=== PATIENT | female | born 1975 | race Caucasian/White ===

== ENCOUNTER 2017-03-05 13:09 | Emergency (ER) | payer BC ==
--- NOTE | 2017-03-05 13:48 | UC ---
Headache HPI - HPI Summary HPI Summary: 41 YEAR OLD FEMALE PRESENTS WITH COMPLAINS OF SEVERE NECK PAIN, FEVER AND CHILLS. I WILL SEND HER TO THE ER TO RULE OUT MENINGITIS. - History Of Current Complaint Stated Complaint: HEADACHE,VOMITING Time Seen by Provider: 03/05/17 13:41 Hx Last Menstrual Period: 12/22/16 Onset/Duration: Sudden Onset Onset Of Symptoms: Sudden Initially Headache Was: Moderate Pain Scale Used: 0-10 Numeric - 7 Character: Sharp Location of Headache: Occipital Allevating Factors: Nothing Associated Signs And Symptoms: Positive: Fever, Neck Pain, Neck Stiffness - Allergies/Home Medications Allergies/Adverse Reactions: Allergies Allergy/AdvReac Type Severity Reaction Status Date / Time Adhesive Tape Allergy Peeling, Verified 03/05/17 13:47 Red Skin ENVIRONMENTAL Allergy SNEEZING, Uncoded 03/05/17 13:47 STUFFY PMH/Surg Hx/FS Hx/Imm Hx - Surgical History Surgical History: Yes Surgery Procedure, Year, and Place: HX OF BREAST REDUCTION 2007 [facility]. BREAST AND STOMACH RECONSTRUCTION SX 2007. ganglion cyst removed oct 2013 - Family History Known Family History: Positive: Hypertension Negative: Cardiac Disease, Diabetes Family History: family history neagtive for asthma, COPD - Social History Alcohol Use: None Substance Use Type: None Smoking Status (MU): Never Smoked Tobacco - Immunization History Most Recent Influenza Vaccination: July 2015 Review of Systems Constitutional: Fever, Chills, Fatigue Skin: Negative Eyes: Negative ENT: Sore Throat, Sinus Congestion, Sinus Pain/Tenderness Respiratory: Cough Cardiovascular: Negative Gastrointestinal: Negative Genitourinary: Negative Motor: Negative Neurovascular: Negative Musculoskeletal: Negative Neurological: Negative, Headache, Other - NECK PAIN Psychological: Negative All Other Systems Reviewed And Are Negative: Yes Physical Exam Triage Information Reviewed: Yes Eye Exam: Normal ENT Exam: Normal Dental Exam: Normal Neck exam: Normal Neck: Positive: Nuchal Rigidity, Tenderness @ Respiratory Exam: Normal Cardiovascular Exam: Normal Abdominal Exam: Normal Musculoskeletal Exam: Normal Neurological Exam: Normal Psychological Exam: Normal Skin Exam: Normal Headache Course/Dx - Differential Dx/Diagnosis Provider Diagnoses: NECK PAIN. FEVER. CHILLS. BODYACHES Discharge - Discharge Plan Condition: Guarded Disposition: AGAINST MEDICAL ADVICE Patient Education Materials: Acute Headache (ED), Acute Nausea and Vomiting (ED ) Referrals: Mona Rosales MD [Primary Care Provider] -
[2017-03-05 13:54] VITALS: BP 115/73
== END 2017-03-05 14:04 | disposition left against medical advice (07) ==
LOC: UCCORT 13:09
DX: M54.2 Cervicalgia (principal); R50.9 Fever, unspecified; Z91.048 Other nonmedicinal substance allergy status
CPT/HCPCS: 99212; G0463

== ENCOUNTER 2017-05-21 12:21 | Emergency (ER) | payer BC ==
[2017-05-21 12:40] VITALS: BP 145/83
[2017-05-21] MEDS ORDERED: Albuterol 2.5 MG/3 ML NEB.SOL* (0.083%) INH ONE (13:00)
--- NOTE | 2017-05-21 13:00 | UC ---
Respiratory Complaint HPI - HPI Summary HPI Summary: Pt presents with c/o of cough, SOB, and wheezing X week. Pt has history of pneumonia - History of Current Complaint Chief Complaint: UCRespiratory Stated Complaint: CHEST CONGSTION, COUGH Time Seen by Provider: 05/21/17 12:42 Hx Obtained From: Patient Hx Last Menstrual Period: 05/12/17, on control ?: No Onset/Duration: Gradual Onset, Lasting Weeks - 1, Still Present, Worse Since - onset Timing: Intermittent Episodes Severity Initially: Mild Severity Currently: Mild Character: Cough: Nonproductive Aggravating Factors: Allergens, Exertion, Deep Breaths, Recumbent Position Alleviating Factors: Nothing Associated Signs And Symptoms: Positive: Wheezing, URI, Nasal Congestion Related History: Seasonal Allergies - Risk Factors Pulmonary Embolism Risk Factors: Oral Contraceptives Cardiac Risk Factors: Negative Pseudomonas Risk Factors: Negative Tuberculosis Risk Factors: Negative - Allergies/Home Medications Allergies/Adverse Reactions: Allergies Allergy/AdvReac Type Severity Reaction Status Date / Time Adhesive Tape Allergy Peeling, Verified 05/21/17 12:40 Red Skin ENVIRONMENTAL Allergy SNEEZING, Uncoded 05/21/17 12:40 STUFFY Home Medications: Home Medications Dextromethorphan-Phenylephrine [Robitussin Cold+Flu Dayti 10-5-325 mg] 1 cap PO DAILY PRN 05/21/17 [History Confirmed 05/21/17] PMH/Surg Hx/FS Hx/Imm Hx Previously Healthy: Yes Respiratory History: Asthma - ?, Pneumonia - Surgical History Surgical History: Yes Surgery Procedure, Year, and Place: HX OF BREAST REDUCTION 2008 [facility]. BREAST AND STOMACH RECONSTRUCTION SX 2007. ganglion cyst removed oct 2013 - Family History Known Family History: Positive: Hypertension Negative: Cardiac Disease, Diabetes Family History: family history neagtive for asthma, COPD - Social History Occupation: Employed Full-time Lives: With Family Alcohol Use: None Substance Use Type: None Smoking Status (MU): Never Smoked Tobacco Have You Smoked in the Last Year: No - Immunization History Most Recent Influenza Vaccination: July 2015 Review of Systems Constitutional: Negative Skin: Negative Eyes: Negative ENT: Sore Throat - in the morning, Other - nasal congestion Respiratory: Shortness Of Breath, Cough Cardiovascular: Negative Gastrointestinal: Negative Genitourinary: Negative Motor: Negative Neurovascular: Negative Musculoskeletal: Negative Neurological: Headache Psychological: Negative Is Patient Immunocompromised?: No All Other Systems Reviewed And Are Negative: Yes Physical Exam Triage Information Reviewed: Yes Appearance: Well-Appearing Vital Signs: Initial Vital Signs Temp 98.3 F 05/21/17 12:34 Pulse 75 05/21/17 12:34 Resp 16 05/21/17 12:34 BP 145/83 05/21/17 12:34 Pulse Ox 98 05/21/17 12:34 Vital Signs Reviewed: Yes Eye Exam: Normal ENT Exam: Other ENT: Positive: Nasal congestion, TM bulging - bialteral Dental Exam: Normal Neck exam: Normal Respiratory Exam: Other Respiratory: Positive: Decreased breath sounds - right lower base, Wheezing Cardiovascular Exam: Normal Musculoskeletal Exam: Normal Neurological Exam: Normal Psychological Exam: Normal Skin Exam: Normal UC Diagnostic Evaluation - Laboratory O2 Sat by Pulse Oximetry: 98 Respiratory Course/Dx - Course Course Of Treatment: xray: 2 views of the chest including dual energy PA views demonstrate no mediastinal shift. Heart is of normal size and configuration. Lung farias demonstrate no pleural fluid,. pneumonia or pneumothorax. IMPRESSION: No active cardiopulmonary disease is identified. - Differential Dx/Diagnosis Differential Diagnosis/HQI/PQRI: Asthma, Bronchitis Provider Diagnoses: reactive airway. post viral cough Discharge - Discharge Plan Condition: Stable Disposition: HOME Prescriptions: Benzonatate CAP* [Tessalon 100 MG CAP*] 100 mg PO TID PRN #30 cap PRN Reason: Cough Cetirizine* [ZyrTEC 10 MG TAB*] 10 mg PO DAILY #20 tab Fluticasone NASAL SPRAY 50MCG* [Flonase NASAL SPRAY 50MCG*] 2 spray BOTH NARES DAILY #1 btl predniSONE TAB* [Deltasone TAB*] 20 mg PO DAILY #4 tab Patient Education Materials: Reactive Airways Disease (ED) Referrals: Mona Rosales MD [Primary Care Provider] - If Needed Additional Instructions: Please follow up with your PCP or return to clinic as needed.
[2017-05-21] MEDS ORDERED: Ipratropium 0.5MG/2.5ML NEB* 0.5 MG/2.5 ML NEB.SOLN INH ONE (13:01)
--- NOTE | 2017-05-21 13:24 | RAD ---
Indication: Cough, shortness of breath. 2 views of the chest including dual energy PA views demonstrate no mediastinal shift. Heart is of normal size and configuration. Lung farias demonstrate no pleural fluid, pneumonia or pneumothorax. IMPRESSION: No active cardiopulmonary disease is identified.
== END 2017-05-21 13:49 | disposition home or self-care (01) ==
LOC: UCCORT 12:21
DX: J45.909 Unspecified asthma, uncomplicated (principal); R05 Cough; Z79.3 Long term (current) use of hormonal contraceptives
CPT/HCPCS: 71020; 99212; G0463; J7644

== ENCOUNTER 2018-03-25 11:55 | Emergency (ER) | payer BC ==
[2018-03-25 12:12] VITALS: BP 132/80
--- NOTE | 2018-03-25 12:34 | UC ---
Skin Complaint HPI - HPI Summary HPI Summary: 2 days of spreading rash on left ankle---unsure if she got bitten by an insect/ bee or spider - History of Current Complaint Chief Complaint: UCRash Time Seen by Provider: 03/25/18 12:15 Stated Complaint: SKIN ISSUE Hx Obtained From: Patient Hx Last Menstrual Period: 03/13/18 ?: No Onset/Duration: Sudden Onset, Lasting Days - 2 Skin Exposure Onset/Duration: Days Ago - 2 Timing: Constant Pain Intensity: 7 Pain Scale Used: 0-10 Numeric Location: Discrete - inner left ankle Character: Swelling, Pain, Redness Aggravating Factor(s): Nothing Alleviating Factor(s): Nothing Associated Signs & Symptoms: Positive: Negative Related History: Insect Bite/Sting - Allergy/Home Medications Allergies/Adverse Reactions: Allergies Allergy/AdvReac Type Severity Reaction Status Date / Time Adhesive Tape Allergy Peeling, Verified 05/21/17 12:40 Red Skin ENVIRONMENTAL Allergy SNEEZING, Uncoded 05/21/17 12:40 STUFFY Review of Systems Constitutional: Negative Skin: Other - open area frm ?bite or sting with surrounding tenderness and erythema (no streaking) Eyes: Negative ENT: Negative Respiratory: Negative Cardiovascular: Negative Gastrointestinal: Negative Genitourinary: Negative Motor: Negative Neurovascular: Negative Musculoskeletal: Negative Neurological: Negative Psychological: Negative Is Patient Immunocompromised?: No All Other Systems Reviewed And Are Negative: Yes PMH/Surg Hx/FS Hx/Imm Hx Previously Healthy: No Cardiovascular History: Hypertension Respiratory History: Asthma - mild intermitt. asthma Psychological History: Depression - Surgical History Surgical History: Yes Surgery Procedure, Year, and Place: HX OF BREAST REDUCTION 2007 [facility]. BREAST AND STOMACH RECONSTRUCTION SX 2007. ganglion cyst removed oct 2013 - Family History Known Family History: Positive: Hypertension Negative: Cardiac Disease, Diabetes Family History: family history neagtive for asthma, COPD - Social History Occupation: Employed Full-time Lives: With Family Alcohol Use: None Substance Use Type: None Smoking Status (MU): Never Smoked Tobacco Have You Smoked in the Last Year: No - Immunization History Most Recent Influenza Vaccination: July 2015 Physical Exam Triage Information Reviewed: Yes Appearance: Well-Appearing, No Pain Distress, Obese Vital Signs: Initial Vital Signs Temp 98 F 03/25/18 12:10 Pulse 83 03/25/18 12:10 Resp 17 03/25/18 12:10 BP 132/80 03/25/18 12:10 Pulse Ox 100 03/25/18 12:10 Vital Signs Reviewed: Yes Eye Exam: Normal Eyes: Positive: Conjunctiva Clear ENT Exam: Normal ENT: Positive: Normal ENT inspection, Hearing grossly normal, Pharynx normal. Negative: Trismus, Muffled voice, Hoarse voice Dental Exam: Normal Neck exam: Normal Neck: Positive: Supple, Nontender, No Lymphadenopathy Respiratory Exam: Normal Respiratory: Positive: Chest non-tender, No respiratory distress, No accessory muscle use Cardiovascular Exam: Normal Cardiovascular: Positive: RRR, Pulses Normal, Brisk Capillary Refill Musculoskeletal Exam: Normal Musculoskeletal: Positive: Strength Intact, ROM Intact, Edema @ - left medial ankle Neurological Exam: Normal Neurological: Positive: Alert Psychological Exam: Normal Skin Exam: Other Skin: Positive: Other - open area from insect bite or sting and 2 days of surrounding worsening pain and redness Course/Dx - Course Course Of Treatment: elevation, warmth, bactrim, follow with pcp - Diagnoses Provider Diagnoses: cellulitis left medial ankle, insect bite Discharge - Sign-Out/Discharge Documenting (check all that apply): Patient Departure - Discharge Plan Condition: Stable Disposition: HOME Prescriptions: Sulfamethox/Trimethoprim DS* [Bactrim DS 800/160 TAB*] 1 tab PO BID #14 tab Patient Education Materials: Cellulitis (ED), Insect Bite or Sting (ED), Warm Compress or Soak (ED) Referrals: Mona Rosales MD [Primary Care Provider] - If Needed Additional Instructions: Rest and elevate leg with warm compress this weekend - Billing Disposition and Condition Condition: STABLE Disposition: Home
== END 2018-03-25 12:45 | disposition home or self-care (01) ==
LOC: UCEAST 11:55
DX: S90.562A Insect bite (nonvenomous), left ankle, initial encounter (principal); L03.116 Cellulitis of left lower limb; I10 Essential (primary) hypertension; J45.909 Unspecified asthma, uncomplicated; W57.XXXA Bitten or stung by nonvenomous insect and other nonvenomous arthropods, initial encounter; Z91.09 Other allergy status, other than to drugs and biological substances; Y92.9 Unspecified place or not applicable
CPT/HCPCS: 99212; G0463

== ENCOUNTER 2018-03-28 12:30 | Emergency (ER) | payer BC ==
--- NOTE | 2018-03-28 13:25 | UC ---
Skin Complaint HPI - HPI Summary HPI Summary: 42 yo female presents with bug bite and cellulitis to inside of left ankle. She was seen here on 03/25 and placed on Bactrim. Pt outlined the initial area of redness and pain - since being seen this area has spread about 1.0cm beyond the margins. Denies fever, chills, decreased ROM, or open sore to the area. - History of Current Complaint Time Seen by Provider: 03/28/18 13:24 Stated Complaint: SKIN ISSUE Hx Obtained From: Patient Hx Last Menstrual Period: 03/13/18 Onset/Duration: Sudden Onset - Allergy/Home Medications Allergies/Adverse Reactions: Allergies Allergy/AdvReac Type Severity Reaction Status Date / Time Adhesive Tape Allergy Peeling, Verified 03/28/18 13:20 Red Skin ENVIRONMENTAL Allergy SNEEZING, Uncoded 03/28/18 13:20 STUFFY Review of Systems Constitutional: Negative Skin: Other - Cellulitis left ankle Respiratory: Negative Cardiovascular: Negative Neurovascular: Negative Musculoskeletal: Negative Neurological: Negative Psychological: Negative All Other Systems Reviewed And Are Negative: Yes PMH/Surg Hx/FS Hx/Imm Hx Cardiovascular History: Hypertension Psychological History: Anxiety, Depression - Surgical History Surgical History: Yes Surgery Procedure, Year, and Place: HX OF BREAST REDUCTION 2008 [facility]. BREAST AND STOMACH RECONSTRUCTION SX 2007. ganglion cyst removed oct 2013 - Family History Known Family History: Positive: Hypertension Negative: Cardiac Disease, Diabetes Family History: family history neagtive for asthma, COPD - Social History Occupation: Employed Full-time Lives: With Family Alcohol Use: None Substance Use Type: None Smoking Status (MU): Never Smoked Tobacco Have You Smoked in the Last Year: No - Immunization History Most Recent Influenza Vaccination: July 2015 Physical Exam - Summary Physical Exam Summary: GENERAL: NAD. WDWN. No pain distress. SKIN: Left ankle: Medial aspect with area of mild redness, edema, and tenderness extending 1.0cm beyond initial markings. No streaking, bleeding, or drainage. NECK: Supple. Nontender. No lymphadenopathy. CHEST: No accessory muscle use. Breathing comfortably and in no distress. CV: Pulses intact MSK: Left ankle: FROM NEURO: Alert. CN II-XII grossly intact. PSYCH: Age appropriate behavior. Triage Information Reviewed: Yes Vital Signs: Vital Signs: Temp Pulse Resp BP Pulse Ox 98.8 F 73 16 93/56 98 07/24/18 13:22 03/28/18 13:22 03/28/18 13:22 03/28/18 13:22 03/28/18 13:22 Vital Signs Reviewed: Yes Course/Dx - Course Course Of Treatment: Cellulitis left ankle. Will have her stop Bactrim as it is not effective. Switch to Augmentin and f/u if symptoms persist or worsen. - Diagnoses Provider Diagnoses: Left ankle bug bite cellulitis Discharge - Sign-Out/Discharge Documenting (check all that apply): Patient Departure - Discharge Plan Condition: Stable Disposition: HOME Prescriptions: Amoxicillin/Clavulanate TAB* [Augmentin TAB 875*] 875 mg PO BID #14 tab Patient Education Materials: Cellulitis (DC) Referrals: Mona Rosales MD [Primary Care Provider] - Additional Instructions: If you develop a fever, shortness of breath, chest pain, new or worsening symptoms - please call your PCP or go to the ED. - Billing Disposition and Condition Condition: STABLE Disposition: Home
[2018-03-28 13:28] VITALS: BP 93/56
== END 2018-03-28 13:48 | disposition home or self-care (01) ==
LOC: UCEAST 12:30
DX: S90.562A Insect bite (nonvenomous), left ankle, initial encounter (principal); L03.116 Cellulitis of left lower limb; Z91.048 Other nonmedicinal substance allergy status; Z91.09 Other allergy status, other than to drugs and biological substances; I10 Essential (primary) hypertension; W57.XXXA Bitten or stung by nonvenomous insect and other nonvenomous arthropods, initial encounter; Y92.9 Unspecified place or not applicable
CPT/HCPCS: 99212; G0463

== ENCOUNTER 2024-07-31 10:02 | Observation (INO) ==
[~2024-07-31 10:02] MED LIST: HYDROmorphone 1 MG/1 ML SYRINGE IV PRN; Naloxone 0.4 mg VIAL 0.4 mg/ml 1 ml VIAL IV PRN; Ondansetron 4 mg VIAL 2 MG/ML 2 ml VIAL IV PRN; fentaNYL 100 mcg/2 ml 50 MCG/ML VIAL IV PRN
[2024-07-31 10:58] LABS: Rapid COVID-19 Molecular Undetected (Undetected)
[2024-07-31] MEDS ORDERED: ceFAZolin 1 GM in Dextrose 1 GM/50 ML BAG ONE (11:11)
[2024-07-31] MEDS ORDERED: Tranexamic Acid 1 GM/100ML BAG 2,000 MG/200 ML BAG IV ONE (11:11)
[2024-07-31] MEDS ORDERED: ceFAZolin 2 GM PREMIX 2 GM/50 ML BAG ONE (11:11)
[2024-07-31] MEDS ORDERED: Midazolam 2 mg/2 ml VIAL 1 mg/ml 2 ml VIAL (2 mg) ONE ×2 (11:28→13:59)
[2024-07-31] MEDS ORDERED: Dexamethasone IV 4 MG/ML VIAL 1 ml VIAL ONE ×2 (11:29→13:35)
[2024-07-31] MEDS ORDERED: Bupivacaine 0.5% SDV PF 30ML VIAL ONE (11:29)
[2024-07-31] MEDS: Buffered Lidocaine 1% SYRIN 1 ml INTRADERM ONE (11:32)
[2024-07-31] MEDS: Lactated Ringers 1000 ml BAG 1,000 ML IV SCH ×2 (11:32→17:33)
[2024-07-31] MEDS: Scopolamine 1 mg/72hr PATCH TRANSDERM ONE (11:33)
[2024-07-31] MEDS ORDERED: ROPIVACAINE 5 MG/ML 30 ML BTL (0.5%) ONE (11:43)
[2024-07-31] MEDS ORDERED: Magnesium Hydroxide LIQ 30 ML UDC PO PRN (12:33)
[2024-07-31] MEDS ORDERED: Ondansetron 4 mg VIAL 2 MG/ML 2 ml VIAL IV PRN (12:33)
[2024-07-31] MEDS ORDERED: Lactulose 30 ml UDC PO PRN (12:33)
[2024-07-31] MEDS ORDERED: Calcium Carb (TUMS) 500 mg CHEW TAB PO PRN (12:33)
[2024-07-31] MEDS ORDERED: Ondansetron ODT 4 mg TAB 4 MG TAB PO PRN (12:33)
[2024-07-31] MEDS ORDERED: Morphine 2 MG/ML SYRINGE IV PRN (12:33)
[2024-07-31] MEDS ORDERED: Propofol 10 MG/ML 20 ML BTL ONE ×2 (12:39→15:21)
[2024-07-31] MEDS ORDERED: Lidocaine 2% PF 5 ML VIAL ONE (12:39)
[2024-07-31] MEDS ORDERED: Ondansetron 4 mg VIAL 2 MG/ML 2 ml VIAL ONE (13:35)
[2024-07-31] MEDS ORDERED: KETAMINE HCL 10 MG/ML 20 ml VIAL (200 MG) ONE (13:43)
[2024-07-31] MEDS ORDERED: fentaNYL 100 mcg/2 ml 50 MCG/ML VIAL ONE (13:59)
[2024-07-31] MEDS ORDERED: Glycopyrrolate IV 0.2 MG/ML 1 ML VIAL ONE (14:02)
[2024-07-31] MEDS ORDERED: Albuterol HFA INHALER 8 gm MDI INH PRN (17:02)
[2024-07-31] MEDS: Acetaminophen IV 1 GM/100ML 1,000 MG/100 ML BAG IV ONE (18:55)
[2024-07-31] MEDS: ceFAZolin 2 GM PREMIX 2 GM/50 ML BAG IV SCH (21:20)
[2024-07-31] MEDS: Magnesium Hydroxide LIQ 30 ML UDC PO SCH (21:23)
[2024-08-01 06:50] LABS: Calcium 9.4 mg/dL (8.6-10.3); Creatinine, Serum 0.95 mg/dL (0.51-0.95); Potassium 4.1 mmol/L (3.5-5.0); eGFR CKD-EPI 74.4 (>60)
[2024-08-01 07:04] LABS: Hematocrit 28.8 % (35-45); Mean Platelet Volume 6.8 fL (7.5-11.2); Platelet Count 450 10^3/uL (150-450)
[2024-08-01] MEDS: Vitamin THERAPEUTIC TAB PO SCH (08:24)
[2024-08-01] MEDS: Venlafaxine XR 75 mg PO SCH (08:24)
[2024-08-01 09:43] VITALS: BP 117/66
[2024-08-01] MEDS ORDERED: Aspirin EC 81 mg TAB.EC (enteric coated) PO SCH (21:00)
== END 2024-08-01 14:18 | disposition home or self-care (01) ==
LOC: SSU 10:02 → OR 10:02
PROVIDERS: ADMIT Orthopaedic Surgery Adult Reconstructive Orthopaedic Surgery; ATTEND Orthopaedic Surgery Adult Reconstructive Orthopaedic Surgery